=== PATIENT | female | born 1980 | race Caucasian/White ===

== ENCOUNTER 2018-10-09 13:15 | Emergency (ER) | payer OTHER ==
[~2018-10-09] VITALS: Ht 162.6 cm; Wt 93.9 kg
== END 2018-10-09 17:11 | disposition home or self-care (01) ==
LOC: ER 13:15
DX: S80.02XA Contusion of left knee, initial encounter (principal); S80.01XA Contusion of right knee, initial encounter; W18.09XA Striking against other object with subsequent fall, initial encounter; Y93.89 Activity, other specified; Y92.018 Other place in single-family (private) house as the place of occurrence of the external cause; Y99.8 Other external cause status

== ENCOUNTER 2022-01-08 17:58 | Emergency (ER) | payer OTHER ==
[~2022-01-08] VITALS: Ht 162.6 cm; Wt 99.8 kg
[2022-01-08] MEDS ORDERED: MEDROLPACK PO (18:43)
== END 2022-01-08 18:53 | disposition home or self-care (01) ==
LOC: ER 17:58
DX: L50.9 Urticaria, unspecified (principal); R21 Rash and other nonspecific skin eruption